=== PATIENT | female | born 1965 | race Caucasian/White ===

== ENCOUNTER 2018-12-20 00:40 | Emergency (ER) | payer OTHER, MEDICAID ==
--- NOTE | 2018-12-20 00:58 | EDM.PDOC ---
ED HPI GENERAL MEDICAL PROBLEM - General Chief Complaint: Upper Extremity Injury/Pain Stated Complaint: HURT HAND Time Seen by Provider: 12/20/18 00:58 Source of Information: Reports: Patient History Limitations: Reports: No Limitations - History of Present Illness INITIAL COMMENTS - FREE TEXT/NARRATIVE: 53-year-old female who works at [employer] and at approximately 10 PM, a sugar beet fell approximately 5 feet landing directly on the dorsal aspect of her right gloved hand. She had some mild pain in the area at the time. At approximately 11 PM or so, she removed her glove to take a break and noted marked swelling over the dorsum of her right hand. She had a sore, stinging pain in the hand that she rated as a 3/10. It was worse with palpation and movement but she was able to use her hand without significant problems. No other injuries. She was sent to the emergency department for evaluation. There are no other associated signs or symptoms. There are no other modifying factors. Onset: Today (10 PM) Duration: Getting Worse (?) Location: Reports: Upper Extremity, Right (Right hand) Quality: Reports: Other (Sore and stinging with some pressure) Severity: Mild Improves with: Reports: Rest Worsens with: Reports: Other (Palpation), Movement Context: Reports: Trauma Associated Symptoms: Reports: No Other Symptoms Treatments FAMILY LAW PARALEGAL: Reports: Cold Therapy R hand Pain Score (Numeric/FACES): 3 - Related Data Allergies Allergy/AdvReac Type Severity Reaction Status Date / Time No Known Allergies Allergy Verified 12/20/18 00:51 Home Meds: Home Meds Ibuprofen 600 mg PO Q6H PRN 04/22/16 [History] Past Medical History Gastrointestinal History: Reports: GERD - Past Surgical History GI Surgical History: Reports: Appendectomy Female Surgical History: Reports: Section Social & Family History - Family History Oncologic: Reports: Colon, Thyroid - Tobacco Use Smoking Status *Q: Current Every Day Smoker - Caffeine Use Caffeine Use: Reports: Coffee - Alcohol Use Alcohol Use History: Yes Alcohol Use Frequency: Monthly - Living Situation & Occupation 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[employer].) Review of Systems - Review of Systems Review Of Systems: See Below Constitutional: Reports: No Symptoms Eyes: Reports: No Symptoms Ears: Reports: No Symptoms Nose: Reports: Other (Allergy type symptoms) Mouth/Throat: Reports: No Symptoms Respiratory: Reports: No Symptoms Cardiovascular: Reports: No Symptoms GI/Abdominal: Reports: No Symptoms Genitourinary: Reports: No Symptoms Musculoskeletal: Reports: Other (Right hand dominant) Skin: Reports: Bruising (And hematoma to the dorsum of the hand) Neurological: Reports: No Symptoms ED EXAM, GENERAL - Physical Exam Exam: See Below Exam Limited By: No Limitations General Appearance: Alert, WD/WN, No Apparent Distress Eye Exam: Bilateral Eye: EOMI, Normal Inspection Ears: Normal External Exam Ear Exam: Bilateral Ear: Auricle Normal Nose: No Blood, Nasal Drainage, Clear Rhinorrhea Throat/Mouth: Normal Inspection, Normal Lips, Normal Oropharynx, Normal Voice, No Airway Compromise Head: Atraumatic, Normocephalic Neck: Normal Inspection, Supple, Non-Tender, Full Range of Motion Respiratory/Chest: No Respiratory Distress, Lungs Clear, Normal Breath Sounds, No Accessory Muscle Use Cardiovascular: Normal Peripheral Pulses, Regular Rate, Rhythm, No JVD Peripheral Pulses: 2+: Radial (L), Radial (R) GI/Abdominal: Normal Bowel Sounds, Soft, Non-Tender, No Mass Back Exam: Normal Inspection Extremities: Normal Capillary Refill, Other (Swelling and ecchymosis with hematoma to the dorsum of the right hand over the third and fourth metacarpal phalangeal joint areas.) Neurological: Alert, Oriented, CN II-XII Intact, Normal Cognition, No Motor/ Sensory Deficits Skin Exam: Warm, Dry, No Rash, Ecchymosis Course - Vital Signs Last Recorded V/S: Last Vital Signs Temp 36.3 C 12/20/18 00:47 Pulse 74 12/20/18 00:47 Resp 18 12/20/18 00:47 BP 169/97 H 12/20/18 00:47 Pulse Ox 99 12/20/18 00:47 - Orders/Labs/Meds Orders: Active Orders 24 hr Category Date Time Status Hand Comp Min 3V Rt [CR] Stat Exams 12/20/18 00:57 Taken - Radiology Interpretation Free Text/Narrative:: X-ray of right hand showed no fracture. - Re-Assessments/Exams Free Text/Narrative Re-Assessment/Exam: 12/20/18 01:35: Patient with contusion to dorsum of right hand with small hematoma. The x-ray showed no evidence of fracture. The patient has full function in her right hand. We will place an Armando wrap on her right hand/wrist area and she is to use this for the next 2-3 days. I have given her restrictions of no strenuous use with the right hand for the next 2 days. She is cleared to go back to work with these restrictions above. Departure - Departure Time of Disposition: 01:40 Disposition: Home, Self-Care 01 Condition: Good Clinical Impression: Contusion of right hand, initial encounter Traumatic hematoma of right hand Qualifiers: Encounter type: initial encounter Qualified Code(s): S60.221A - Contusion of right hand, initial encounter - Discharge Information Instructions: Hand Contusion, [id number] Referrals: Anand Beard MD [Primary Care Provider] - Forms: ED Department Discharge, ED Return to Work/School Form Additional Instructions: The x-ray of your right hand showed no fracture. You have a bruise and a hematoma to the top of your right hand. Use the Armando wrap on the right hand for the next 2-3 days. Avoid strenuous use with the right hand for the next few days. You are cleared to go back to work with these restrictions. You may take ibuprofen and Tylenol for pain as needed. Apply ice packs intermittently to the right hand. Back to the emergency department for marked increase in pain, redness, any signs of infection or any other concerning sign or symptom. - My Orders Last 24 Hours: My Active Orders 12/20/18 00:57 Hand Comp Min 3V Rt [CR] Stat - Assessment/Plan Last 24 Hours: My Active Orders 12/20/18 00:57 Hand Comp Min 3V Rt [CR] Stat
[2018-12-20 02:42] VITALS: BP 135/85; PULSE 68
--- NOTE | 2018-12-22 09:42 | CR ---
INDICATION: Right hand struck with beet, swelling and pain. RIGHT HAND: Three views of the right hand revealed evidence of osteoarthritis at the interphalangeal joint of the thumb and the DIPJs, most severe at the 2nd and 3rd fingers and also seen at the PIPJs of the 3rd, 4th, and 5th fingers. Soft tissue swelling is noted overlying the dorsum of the hand at the levels of the distal metacarpals - metacarpophalangeal joints. A fracture, dislocation, or other significant bone or joint abnormality was not identified. IMPRESSION: Osteoarthritis. MTDD
== END 2018-12-20 02:00 | disposition home or self-care (01) ==
LOC: FB.ED 00:40
DX: S60.221A Contusion of right hand, initial encounter (principal); F17.200 Nicotine dependence, unspecified, uncomplicated; W20.8XXA Other cause of strike by thrown, projected or falling object, initial encounter
CPT/HCPCS: 73130-RT; 99000; 99283-25